=== PATIENT | female | born 1975 ===

== ENCOUNTER 2018-02-23 18:26 | Emergency (ER) | payer SELFPAY ==
[2018-02-23 18:38] VITALS: BP 132/78; PULSE 77; RESP 20; TEMP 98.5; O2SAT 100
--- NOTE | 2018-02-23 19:29 | C.PDOC ---
History Of Present Illness 42 yo female w/o significant PMHx come in for evaluation left upper eyelid lesion gradually developed for past 2 yars. Pt reports, for past few months gradually developed pain over left upper eyelid. Otherwise, pt denies fever, chills, headache, dizziness, visual changes, blurry vision, eye discharges, FB sensation, denies contact use, denies any other active complaints. Ambulate to Ed for evaluation, not in nay apparent distress. Time Seen by Provider: 02/23/18 18:46 Chief Complaint (Nursing): Eye Problem History Per: Patient Past Medical History Reviewed: Historical Data, Nursing Documentation, Vital Signs Vital Signs: Last Vital Signs Temp 98.5 F 02/23/18 18:36 Pulse 77 02/23/18 18:36 Resp 20 02/23/18 18:36 BP 132/78 02/23/18 18:36 Pulse Ox 100 02/23/18 19:32 - Medical History PMH: No Chronic Diseases Family History: States: No Known Family Hx - Social History Hx Alcohol Use: No Hx Substance Use: No - Immunization History Hx Tetanus Toxoid Vaccination: No Hx Influenza Vaccination: No Hx Pneumococcal Vaccination: No Review Of Systems Except As Marked, All Systems Reviewed And Found Negative. Constitutional: Negative for: Fever, Chills Eyes: Positive for: Eyelid Inflammation. Negative for: Vision Change, Conjunctivae Inflammation, Redness ENT: Negative for: Ear Discharge, Nose Discharge, Throat Pain Cardiovascular: Negative for: Chest Pain Gastrointestinal: Negative for: Nausea, Vomiting, Abdominal Pain Musculoskeletal: Negative for: Neck Pain Skin: Negative for: Rash Neurological: Negative for: Weakness, Numbness, Altered Mental Status, Headache , Dizziness Physical Exam - Physical Exam Appears: Well, Non-toxic, No Acute Distress Skin: Normal Color, Warm, No Rash Head: Atraumatic, Normacephalic Eye(s): bilateral: PERRL, EOMI (no pain or limitation on extraocular movemnet B/ L), left: Other (small mole-like lesion noted upper eyelid 0.5 cm diameter, scant bloody crust. No eyelid inflammation, no periorbital edema or erythema.) Ear(s): Bilateral: Normal Nose: No Flaring, No Discharge, No Deformity Oral Mucosa: Moist, No Drooling Tongue: Normal Appearing Lips: Normal Appearing Throat: No Erythema, No Drooling Neck: Trachea Midline, No Midline Cervical Tenderness, No Paracervical Tenderness, No Step Off Deformity, Supple Respiratory: No Stridor, No Wheezing Extremity: Normal ROM, No Pedal Edema, No Deformity, No Swelling Neurological/Psych: Oriented x3, Normal Speech ED Course And Treatment O2 Sat by Pulse Oximetry: 100 Pulse Ox Interpretation: Normal Progress Note: On re-evaluation, pt is afebrile, hemodynamicaly stable. NOn- toxic. Tolerate po well in ED. Left eye: small soft skin growth likely mole over upper eyelid 0.5cm, no eyedli edema or erythema. No periorbital edema or erythema, no conjunctival discharges. No pain or limitaion on extraocular movement. VA: R20/15,L20/15, B/L 20/15 w/o correction. ENT: no acute findings. neck: SUpple. Lungs: CTA B/L, BS equal B/L. Neurologicaly intact. Pt was seen by , no further emergent work up, discharge with outpt f/ u recommend at this time. Parent advised on course of ds. Ref. to F/u with Opht in 2-3 days for re-eval. return to ED if any worsening or new changes. Disposition Counseled Patient/Family Regarding: Studies Performed, Diagnosis, Need For Followup, Rx Given - Disposition Referrals: Carl Caban MD [Staff Provider] - Disposition: HOME/ ROUTINE Disposition Time: 19:01 Condition: STABLE Additional Instructions: Use medication as prescribed Follow up with Ophthalmology in 2-3 days for re-evaluation. return to Ed if any worsening or new changes. Prescriptions: Neomycin/Polymyxin B/Dexametha [Maxitrol] 1 oin LEFTEYE DAILY #1 tube Instructions: [employer] Forms: [employer] (Bermudian) Print Language: INDIAN - Clinical Impression Clinical Impression: [facility]ion
== END 2018-02-23 19:41 | disposition home or self-care (01) ==
LOC: C.ER 18:26
DX: H00.14 Chalazion left upper eyelid (principal)

== ENCOUNTER 2019-02-21 13:16 | Outpatient (CLI) | payer OTHER | END 2019-02-21 13:17 | disposition home or self-care (01) | LOC: C.MAMMO 13:17 ==